=== PATIENT | female | born 1985 | race Caucasian/White ===

== ENCOUNTER 2019-07-25 17:41 | Emergency (ER) | payer BC ==
[~2019-07-25] VITALS: Ht 170.2 cm; Wt 79.5 kg
[2019-07-25 17:56] VITALS: BP 101/62; TEMP 99.3
[2019-07-25 18:31] LABS: COLLECTION METHOD CLEAN CATCH
[2019-07-25 18:34] LABS: HEMATOCRIT 38.2 % (37.0-47.0); HEMOGLOBIN 13.4 g/dl (12.5-16.0); MEAN CELL VOLUME 89 fl (80.0-100.0); MEAN CORPUSCULAR HEMOGLOBIN 31 pg (27.0-31.0); MEAN CORPUSCULAR HGB CONC 35 g/dl (33.0-37.0); MEAN PLATELET VOLUME 8.7 fl (7.4-10.4); PLATELET COUNT 302 K/mm3 (130-400); RED BLOOD COUNT 4.29 M/mm3 (4.10-5.30); REDCELL DISTRIBUTION WIDTH-CV 12.6 % (11.5-14.5)
[2019-07-25 18:47] LABS: ALBUMIN 4.1 gm/dL (3.5-5.0); BILIRUBIN,TOTAL 1.7 mg/dL (0.0-1.0); CALCIUM 8.4 mg/dL (8.4-10.2); CREATININE, serum 0.79 (0.52-1.25); TOTAL PROTEIN 7.7 gm/dL (6.4-8.2)
[2019-07-25 18:50] LABS: POTASSIUM 2.8 mmol/L (3.4-5.0)
[2019-07-25 18:57] LABS: PH 7 (5-8); SQUAMOUS EPITHELIAL None Seen /hpf; URINE APPEARANCE Cloudy; URINE BACTERIA None Seen /hpf; URINE BILIRUBIN Negative (NEGATIVE); URINE BLOOD 3+ (NEGATIVE); URINE COLOR Yellow; URINE GLUCOSE Negative (NEGATIVE); URINE KETONE Trace (NEGATIVE); URINE LEUKOCYTE ESTERASE 3+ (NEGATIVE); URINE NITRATE Positive (NEGATIVE); URINE PROTEIN(semi-quant) 2+ (NEGATIVE); URINE RBC >50 /hpf
[2019-07-25] MEDS ORDERED: K-DUR20 MEQ PO ×2 (19:27→20:50)
[2019-07-25] MEDS ORDERED: OMNICEF 300MG300 MG PO ×2 (19:27→20:50)
[2019-07-25] MEDS ORDERED: ZOFRAN 4MG T4 MG/TAB PO ×2 (19:27→20:50)
[2019-07-25 19:43] LABS: BAND 7 % (0-10); LYMPHOCYTE 2 % (20.0-51.0); NEUTROPHILS 85 % (42.0-75.2); PLATELET ESTIMATE NORMAL (NORMAL); SPHEROCYTE 1+
[2019-07-25 20:51] VITALS: PULSE 96
== END 2019-07-25 20:51 | disposition home or self-care (01) ==
LOC: COL.ER 17:41
PROVIDERS: Emergency Medicine
DX: N12 Tubulo-interstitial nephritis, not specified as acute or chronic (principal); E87.6 Hypokalemia
CPT/HCPCS: J0696; J2405; J7030; Q9967

== ENCOUNTER 2020-07-25 07:52 | Outpatient (CLI) | payer BC ==
[~2020-07-25] VITALS: Ht 167.6 cm; Wt 84.5 kg
--- NOTE | 2020-07-25 07:45 | NUR ---
Patient arrives ambulatory with spouse with complaints of contractions every 6-7 minutes since yesterday afternoon. Patient denies ROM or vaginal bleeding, reports normal movement. Patient changes into gown, EFM explained and placed. VS obtained. 0750- Amniotrace negative. SVE per Huey Albert RN /-3, unchanged from office exam. Patient repositioned WL and updated on plan of care. Assessment completed. Call light in reach.
[2020-07-25 07:52] VITALS: BP 124/77; PULSE 97; TEMP 97.7
[~2020-07-25 07:52] MED LIST: K-DUR20 MEQ PO; OMNICEF 300MG300 MG PO; ZOFRAN 4MG T4 MG/TAB PO
[2020-07-25] MEDS ORDERED: LEXAPRO 10MG10 MG PO (08:05)
[2020-07-25] MEDS ORDERED: PRENATAL (08:05)
[2020-07-25] MEDS ORDERED: PEPCID COMPLETE1 CTB PO (08:06)
[2020-07-25 08:55] VITALS: BP 124/77; PULSE 89; TEMP 97.7
--- NOTE | 2020-07-25 09:25 | NUR ---
Plan of care reviewed with patient. Cat I strip. EFM off. Patient ambulatory in room.
--- NOTE | 2020-07-25 10:25 | NUR ---
Reactive, category 1 FHR strip obtained. Patient updated on plan of care previously by Huey Albert RN. Labor precautions and kick counts reviewed, patient verbalizes understanding and denies questions. Paperwork given. Escorted off unit by spouse.
[2020-07-25 10:33] VITALS: BP 109/76; PULSE 101
== END 2020-07-25 10:39 | disposition home or self-care (01) ==
LOC: LDRO 07:52
DX: O62.9 Abnormality of forces of labor, unspecified (principal); Z3A.38 38 weeks gestation of pregnancy

== ENCOUNTER 2020-07-31 11:57 | Inpatient (IN) | payer BC ==
[~2020-07-31] VITALS: Ht 167.6 cm; Wt 85.0 kg
[2020-07-31] VITALS (24 sets, daily range): BP systolic 92–120; BP diastolic 58–87; PULSE 75–107; TEMP 97.9–98.1
[~2020-07-31 11:57] MED LIST changes: +LEXAPRO 10MG10 MG PO; +PEPCID COMPLETE1 CTB PO; +PRENATAL
--- NOTE | 2020-07-31 13:10 | NUR ---
Pt arrives on unit ambulatory with spouse for IOL. Changed into clean gown. EFM and toco applied. VSS. Denies regular ctx, LOF, vaginal bleeding and reports GFM. Denies covid s/s and swab. IV started in LW. Labs drawn. LR infusing. Admission assessment completed. Consents signed. Pt oriented to room. Bed locked in low position. Call light within reach. No questions or concerns at this time.
[2020-07-31 14:12] LABS: BASO % 0.1 % (0.0-2.0); EOS # 0.1 (0.0-0.7); GRAN # 9.9 (1.4-6.5); GRAN % 74.3 % (42.2-75.2); HEMATOCRIT 40.5 % (37.0-47.0); HEMOGLOBIN 13.9 g/dl (12.5-16.0); LYMPH # 2.3 (1.2-3.4); LYMPH % 17.4 % (20.0-51.0); MEAN CELL VOLUME 86 fl (80.0-100.0); MEAN CORPUSCULAR HEMOGLOBIN 30 pg (27.0-31.0); MEAN CORPUSCULAR HGB CONC 34 g/dl (33.0-37.0); MEAN PLATELET VOLUME 9.9 fl (7.4-10.4); MONO # 0.9 (0.1-0.6); MONO % 6.7 % (1.7-9.3); PLATELET COUNT 375 K/mm3 (130-400); RED BLOOD COUNT 4.69 M/mm3 (4.10-5.30); REDCELL DISTRIBUTION WIDTH-CV 13.8 % (11.5-14.5)
--- NOTE | 2020-07-31 16:53 | NUR ---
RN at bedside. SVE /+2. Pt pushing with ctx. Pt prepped for delivery. Positioned LL. Pt increasingly uncomfortable and moaning with ctx. 1657-Pt moves to pushing position. Involuntarily pushes vertex out on perineum. Bag of water ruptured with pushing. delivered in bed by this RN. Cord clamped x 2. bulb suctioned and placed on mother's abdomen. Care of infant to Rafael Stephenson RN. 1700-Dr. Daniel at bedside. Pt prepped for delivery of placenta. 170- of placenta. Pitocin bolus infusing per policy. Fundus firm at umbilicus. Bleeding WNL. Perineum intact. Pericare performed. Ice pack applied. Pt updated on POC. Bed locked in low position. Call light within reach. No questions or concerns at this time.
[2020-08-01 00:30] VITALS: BP 93/61; PULSE 70; TEMP 97.9
[2020-08-01 04:15] VITALS: BP 95/64; PULSE 74; TEMP 98.8
[2020-08-01 06:36] LABS: HEMATOCRIT 34.1 % (37.0-47.0); HEMOGLOBIN 11.6 g/dl (12.5-16.0)
[2020-08-01 07:20] VITALS: BP 105/65; PULSE 67; TEMP 97.6
[2020-08-01] MEDS ORDERED: IBU600 MG PO (08:21)
[2020-08-01 12:30] VITALS: BP 107/56; PULSE 88; TEMP 98
[2020-08-01 16:30] VITALS: BP 100/66; PULSE 77; TEMP 98.2
== END 2020-08-01 19:15 | disposition home or self-care (01) | DRG 807 ==
LOC: OB 11:57 → LDR 13:02 → OB 19:55
PROVIDERS: ADMIT Obstetrics & Gynecology
PROC: 10E0XZZ Delivery of Products of Conception, External Approach (ICD-10-PCS; principal; 2020-07-31)
DX: O48.0 Post-term pregnancy (principal); Z37.0 Single live birth; Z3A.39 39 weeks gestation of pregnancy
CPT/HCPCS: J2590; J7120